=== PATIENT | male | born 1985 | race Caucasian/White ===

== ENCOUNTER 2024-04-12 08:02 | Day surgery (SDC) | payer OTHER, SELFPAY ==
--- NOTE | 2024-04-12 | PATH_ITS ---
[facility] Accession Number: [id number] No. of containers..01 Tissue . 01 Material submitted: . colon - RANDOM COLON BIOPSIES . 01 Diagnosis: COLON, RANDOM BIOPSIES: Fragments of benign colonic mucosa. Negative for microscopic colitis, dysplasia, or malignancy. MRV 04/14/2024 1300 Local . 01 Electronically signed: . Pernell Almonte MD, Pathologist NPI- [id number] . 01 Gross description: . Received in formalin with two patient identifiers and random colon, are four ferguson soft tissue fragments, 0.3 to 0.6 cm in greatest dimension. Submitted in A1. ([id number]) /MRV 04/13/2024 1723 Local . 01 Pathologist provided ICD-10: R19.7 . 01 CPT . 412093 Specimen Comment: A courtesy copy of this report has been sent to [phone] Performed at: [address] [facility] [address], [place], [place] [id number] MD Олег Doyle MD Phone: [phone]
[2024-04-12 10:04] VITALS: BP 140/100; PULSE 87; RESP 18; TEMP 36.8; O2SAT 99
[2024-04-12] MEDS: LACTATED RINGERS 1,000 ML 42 ML IV (10:12)
[2024-04-12 10:20] VITALS: BP 125/92; PULSE 78; RESP 14; O2SAT 93
--- NOTE | 2024-04-12 10:40 | PM.HP.1 ---
History of Present Illness History of Present Illness Date Patient Seen: 04/12/24 Chief complaint: Colonoscopy Narrative: Rectal bleed and family history of Crohn's disease and with somewhat altered bowel movements [facility] Medical History (Updated 04/12/24 @ 09:51 by Katina Pandey RN) Hernia Constipation Diarrhea Hemorrhoid Social History Smoking Status: Former smoker alcohol intake: current Meds Home Medications and Allergies Home Medications Medication Instructions Recorded Confirmed Type No Known Home Medications 04/12/24 04/12/24 History Allergies Allergy/AdvReac Type Severity Reaction Status Date / Time No Known Drug Allergies Allergy Verified 04/12/24 09:52 Exam Vital Signs (past 8 hours): - 04/12/24 10:04 Temperature 98.3 F Pulse Rate 87 Respiratory Rate 18 Blood Pressure 140/100 H Pulse Oximetry 99 Oxygen Delivery Method Room Air Oxygen Delivery Method Room Air Narrative Exam Narrative: Oropharynx free of lesions Chest clear to auscultation percussion Cardiac exam reveals no S3 or murmur Assessment & Plan Assessment & Plan narrative: Family history of Crohn's disease in his mother with somewhat of a intermittent change in bowel movements and occasional rectal bleeding presumed from hemorrhoids. Need for colonoscopy in terminal ileoscopy. Risks, benefits, alternatives have been explained. Time-Based Coding :: [TOTAL MINUTES] spent with patient and on the chart (including review of chart, obtaining history, exam, reviewing outside data, placing orders, documenting exam and treatment plan, and counseling patient) on [DATE].
--- NOTE | 2024-04-12 10:41 | P.OP.COLON_ITS ---
Operative Date/Time/Diagnoses Date of procedure: 04/12/24 Pre-op diagnosis: See indication and findings Procedure & Clinicians Study performed: Colonoscopy Indications: Rectal bleeding from presumed hemorrhoids and family history of Crohn's disease and bowel movements that are occasionally diarrhea Surgeon: Anna Lema Procedure Notes Procedure in detail: After informed consent was obtained the patient was placed in left lateral decubitus position. The video colonoscope was introduced the rectum slowly adva nced to the cecum. I was unable to intubate the IC valve. Preparation was good. On slow withdrawal mucosa was carefully examined. The scope was removed. The patient tolerated procedure well. Blood loss none Complications none Sedation mac Findings 1. [id number] internal hemorrhoids 2. Normal colonoscopy to cecum though there may be areas of patchy erythema. Random biopsies taken to rule out underlying inflammatory bowel disease Patient will need follow-up colonoscopy in 10 years.
[2024-04-12 11:10] VITALS: BP 121/82; PULSE 12; RESP 95
[2024-04-12 11:15] VITALS: BP 120/88; PULSE 79; RESP 12; O2SAT 94
--- NOTE | 2024-04-12 11:19 | SUR.PHASEI ---
Received to PACU after MAC colonoscopy. Report received from Dr Keller and Romelia Martinez.
[2024-04-12 11:21] VITALS: BP 123/91; PULSE 76; RESP 16; O2SAT 95
== END 2024-04-12 11:33 | disposition home or self-care (01) ==
PROVIDERS: PCP General Practice; Referring Provider Internal Medicine Gastroenterology; Visit Provider Internal Medicine Gastroenterology
PROC: 0DJD8ZZ Inspection of Lower Intestinal Tract, Via Natural or Artificial Opening Endoscopic (ICD-10-PCS; CPT 45378; principal; 2024-04-12 11:00)
DX: K62.5 Hemorrhage of anus and rectum (principal); R19.7 Diarrhea, unspecified; K64.8 Other hemorrhoids
CPT/HCPCS: 45380; J2704